=== PATIENT | female | born 1955 | race Caucasian/White ===

== ENCOUNTER 2023-03-23 23:01 | Observation (INO) ==
[2023-03-24 00:03] LABS: Basophils # (auto) 0.02 K/uL (0-0.2); Basophils % (auto) 0.3 %; Eosinophils # (auto) 0.06 K/uL (0-0.50); Eosinophils % (auto) 0.8 %; Hematocrit (blood only) 34.3 % (37.0-47.0); Immature Granulocytes # (auto) 0.01 K/uL (0.01-0.20); Immature Granulocytes % (auto) 0.1 %; Lymphocytes # (auto) 1.55 K/uL (1.2-3.4); Lymphocytes % (auto) 21.3 %; Mean Corpuscular Hemoglobin 31.5 pg (25.0-34.0); Mean Platelet Volume 9.9 fL (9.4-12.4); Monocytes # (auto) 0.48 K/uL (0.11-0.59); Monocytes % (auto) 6.6 %; Neutrophils # (auto) 5.16 K/uL (1.40-6.50); Neutrophils % (auto) 70.9 %; Platelet Count 228 K/uL (130-400); RDW Coefficient of Variation 12.1 % (11.5-14.5); RDW Standard Deviation 39.6 fL (36.4-46.3); Red Blood Count 3.81 M/uL (4.20-5.40); White Blood Count 7.28 K/ul (4.8-10.8)
[2023-03-24 00:04] LABS: Albumin Globulin Ratio 1.6 (0.9-2); Albumin Level 4.2 gm/dl (3.4-5.0); BUN Creatinine Ratio 15.2 (10-20); Bilirubin,Total 0.8 mg/dl (0.2-1.0); Calcium 8.6 mg/dl (8.6-10.3); Creatinine Clr Calc Pharmacy 71.4 ml/min; Est GFR (African American) 105.9 ml/min; Est GFR (Non-African American) 91.4 ml/min; Globulin 2.6 gm/dl (2.5-4.0); Magnesium 1.8 mg/dl (1.7-2.4); Potassium 3.6 mmol/L (3.5-5.1); Total Protein 6.8 gm/dl (6.0-8.3)
[2023-03-24 00:19] LABS: Thyroid Stimulating Hormone 5.978 uIu/ml (0.300-4.500)
[2023-03-24] MEDS ORDERED: SODIUM CHLORIDE 0.9% 1000ML 1,000 ML IV ONE (01:06)
--- NOTE | 2023-03-24 01:19 | Emergency Department Note ---
Impression & Plan Acute hyponatremia, Blurred vision, Diarrhea Admit to the [facility] ED Provider Note NAME: NANCY GUTIÉRREZ AGE: 68 SEX: F ARRIVES VIA: Walk-In INFORMANT: Patient ED PROVIDER(S): Alejandra Beasley DO CHIEF COMPLAINT: Blurry vision PLAN: Disposition: Admit to the [facility] Condition: Fair MEDICAL DECISION MAKING: This is a 68-year-old female patient who presents to the emergency department for evaluation while prepping for her colonoscopy. She was care home through the prep for colonoscopy when she started to notice some blurry vision. She became quite concerned about this and felt somewhat anxious and noted that she was hypertensive. She contacted the nurse on-call for GI and they suggested she come to the ER for evaluation. Patient blood pressure was elevated here in the emergency department. Laboratory studies reveal a stable H&H, normal glucose but the patient's sodium was significantly low at 125. Patient with a normal- appearing chest x-ray and a normal EKG. Patient began to receive IV normal saline solution but then began to have significant repetitive loose bowel movements from the Sutab prep she had performed at home. I was concerned about the additional sodium loss that may occur from the expected diarrhea. She could become more hyponatremic and possibly seize. I discussed the case with the [facility]ist and they will evaluate for further management. Triage Nursing notes reviewed and agree with them. Additional history obtained from her who is at the bedside Vital Signs: reviewed and remarkable for unremarkable Differential diagnosis: Hypertension Electrolyte abnormality Hyperglycemia Anxiety ER treatment provided: Cardiac monitoring Twelve-lead EKG IV normal saline bolus Diagnostics interpreted by me: ECG: Normal sinus rhythm at a rate of [address] segment elevation or signs of ischemia. There is no ectopy. Cardiac Monitoring: Normal sinus rhythm at a rate of 74 Laboratory studies: See below Imaging studies: As per my independent interpretation Portable chest x-ray: No acute pulmonary infiltrates. HPI: 68/F arrives for evaluation of blurry vision. The patient was performing a Sutab prep at home for a colonoscopy when she developed blurry vision. She contacted the GI nurse on-call and they recommended she come to the emergency department for evaluation. Patient took her blood pressure at home and noted to be elevated. This made her more anxious and concerned. PAST MEDICAL HISTORY:Depression PAST SURGICAL HISTORY:See Below FAMILY HISTORY:See Below SOCIAL HISTORY:She lives with her . HOME MEDICATIONS:See list ALLERGIES:None VITALS:See Below PHYSICAL EXAMINATION: HEENT: Head - normocephalic and atraumatic Pupils are equal, round, and reactive to light. Extraocular eye muscles are intact, and sclera are anicteric. Nose - moist nasal mucosa without discharge. Mouth - moist buccal mucosa. Oropharynx is nonerythematous and there is no tonsillar exudate or edema noted. Neck: Supple; no cervical lymphadenopathy noted Heart: Regular rate and rhythm. There is a normal S1 and S2 with no murmurs, clicks, or gallops appreciated. Lungs: Clear to auscultation bilaterally with no wheezes, rales, or rhonchi. Abdomen: Soft, completely nontender, nondistended, with good bowel sounds. There are no palpable pulsatile masses or hepatosplenomegaly. There is no guarding, rigidity, or rebound noted. Extremities: No evidence of cyanosis, clubbing, or edema. There are easily palpable peripheral pulses. Skin: warm and dry with good turgor and no rashes. ED COURSE: Times/Reassessments: 2310: Patient was evaluated in room C4. A complete history and physical was performed. A twelve-lead EKG was obtained as described above. An order was placed for continuous cardiac monitoring. The patient was in a normal sinus rhythm at a rate of 74. Patient had a portable chest x-ray perf ormed as described above. She was bolused with a liter of normal saline solution wide open. I discussed the case with the [facility] Hospitalist and they will evaluate for further management. Alejandra Beasley DO Past Med/Surg History Medical History (Updated 03/24/23 @ 04:36 by Alejandra Beasley DO) Depression Family History (Updated 03/24/23 @ 03:11 by Lona Thompson DO) Other Diabetes Social History (Updated 03/24/23 @ 03:12 by Lona Thompson DO) Smoking Status: Former smoker Hx Alcohol Use: Yes Alcohol type: wine Feels Safe at Home: Yes Home Meds Home Medications Medication Instructions Recorded Confirmed citalopram 10 mg tablet 15 mg PO DAILY 03/23/23 03/23/23 Results & Data (ED) Vital Signs Vital Signs - 24 hr 03/23/23 23:03 03/23/23 23:43 03/24/23 01:10 Temperature 36.1 C L Temperature Source Temporal Artery Scan Pulse Rate 82 70 Pulse Rate [Right Finger] 74 Pulse Rate from SpO2 Sensor Respiratory Rate 18 18 18 Respiratory Effort / Characteristics Non-Labored Spontaneous Respiratory Depth Normal Blood Pressure 164/100 H Blood Pressure [Right Arm] 134/84 Blood Pressure Mean 121 Blood Pressure Mean [Right Arm] 100 Blood Pressure Position Sitting Pulse Oximetry 97 98 98 Oxygen Delivery Method Room Air Sepsis Recent Fever Within 48 Hours No Sepsis New/Unexplained Change in Mental Status N/A Sepsis Action Taken by Nursing No Action Required 03/24/23 02:25 03/24/23 02:26 03/24/23 02:30 Temperature Temperature Source Pulse Rate 64 Pulse Rate [Right Finger] Pulse Rate from SpO2 Sensor 65 Respiratory Rate 18 Respiratory Effort / Characteristics Respiratory Depth Blood Pressure 138/85 139/78 Blood Pressure [Right Arm] Blood Pressure Mean 102 98 Blood Pressure Mean [Right Arm] Blood Pressure Position Pulse Oximetry 99 Oxygen Delivery Method Sepsis Recent Fever Within 48 Hours Sepsis New/Unexplained Change in Mental Status Sepsis Action Taken by Nursing 03/24/23 02:30 Temperature Temperature Source Pulse Rate 58 L Pulse Rate [Right Finger] Pulse Rate from SpO2 Sensor Respiratory Rate 20 Respiratory Effort / Characteristics Respiratory Depth Blood Pressure Blood Pressure [Right Arm] Blood Pressure Mean Blood Pressure Mean [Right Arm] Blood Pressure Position Pulse Oximetry Oxygen Delivery Method Sepsis Recent Fever Within 48 Hours Sepsis New/Unexplained Change in Mental Status Sepsis Action Taken by Nursing Laboratory Data 03/23/23 23:37 03/23/23 23:37 Lab Results 03/23/23 03/23/23 03/23/23 Range/Units 23:37 23:37 23:37 WBC 7.28 (4.8-10.8) K/ul RBC 3.81 L (4.20-5.40) M/uL Hgb 12.0 (12.0-16.0) g/dl Hct 34.3 L (37.0-47.0) % MCV 90.0 (80.0-100.0) fL MCH 31.5 (25.0-34.0) pg MCHC 35.0 (32.0-36.0) g/dL RDW Std Deviation 39.6 (36.4-46.3) fL RDW Coeff of Lorene 12.1 (11.5-14.5) % Plt Count 228 (130-400) K/uL MPV 9.9 (9.4-12.4) fL Immature Gran % (Auto) 0.1 % Neut % (Auto) 70.9 % Lymph % (Auto) 21.3 % [place] % (Auto) 6.6 % Eos % (Auto) 0.8 % Baso % (Auto) 0.3 % Neut # (Auto) 5.16 (1.40-6.50) K/uL Lymph # (Auto) 1.55 (1.2-3.4) K/uL Candler # (Auto) 0.48 (0.11-0.59) K/uL Eos # (Auto) 0.06 (0-0.50) K/uL Baso # (Auto) 0.02 (0-0.2) K/uL Immature Gran # (Auto) 0.01 (0.01-0.20) K/uL Sodium 125 L (136-145) mmol/L Potassium 3.6 (3.5-5.1) mmol/L Chloride 92 L (98-107) mmol/L Carbon Dioxide 24 (21-32) mmol/L Anion Gap 9 (3-11) BUN 10 (6-23) mg/dl Creatinine 0.66 (0.6-1.2) mg/dl Est Cr Clr Drug Dosing 71.4 ml/min Est GFR ( Amer) 105.9 ml/min Est GFR (Non-Af Amer) 91.4 ml/min BUN/Creatinine Ratio 15.2 (10-20) Glucose 132 H (70-99(Fasting)) mg/dl Calcium 8.6 (8.6-10.3) mg/dl Magnesium 1.8 (1.7-2.4) mg/dl Total Bilirubin 0.8 (0.2-1.0) mg/dl AST 19 (13-39) U/L ALT 14 (7-52) U/L Alkaline Phosphatase 63 (34-104) U/L Total Protein 6.8 (6.0-8.3) gm/dl Albumin 4.2 (3.4-5.0) gm/dl Globulin 2.6 (2.5-4.0) gm/dl Albumin/Globulin Ratio 1.6 (0.9-2) TSH 5.978 H (0.300-4.500) uIu/ml Free T4 0.63 (0.61-1.60) ng/dl SARS-CoV-2, RNA, NAAT (NEGATIVE) 03/24/23 Range/Units 02:26 WBC (4.8-10.8) K/ul RBC (4.20-5.40) M/uL Hgb (12.0-16.0) g/dl Hct (37.0-47.0) % MCV (80.0-100.0) fL MCH (25.0-34.0) pg MCHC (32.0-36.0) g/dL RDW Std Deviation (36.4-46.3) fL RDW Coeff of Lorene (11.5-14.5) % Plt Count (130-400) K/uL MPV (9.4-12.4) fL Immature Gran % (Auto) % Neut % (Auto) % Lymph % (Auto) % Candler % (Auto) % Eos % (Auto) % Baso % (Auto) % Neut # (Auto) (1.40-6.50) K/uL Lymph # (Auto) (1.2-3.4) K/uL Candler # (Auto) (0.11-0.59) K/uL Eos # (Auto) (0-0.50) K/uL Baso # (Auto) (0-0.2) K/uL Immature Gran # (Auto) (0.01-0.20) K/uL Sodium (136-145) mmol/L Potassium (3.5-5.1) mmol/L Chloride (98-107) mmol/L Carbon Dioxide (21-32) mmol/L Anion Gap (3-11) BUN (6-23) mg/dl Creatinine (0.6-1.2) mg/dl Est Cr Clr Drug Dosing ml/min Est GFR ( Amer) ml/min Est GFR (Non-Af Amer) ml/min BUN/Creatinine Ratio (10-20) Glucose (70-99(Fasting)) mg/dl Calcium (8.6-10.3) mg/dl Magnesium (1.7-2.4) mg/dl Total Bilirubin (0.2-1.0) mg/dl AST (13-39) U/L ALT (7-52) U/L Alkaline Phosphatase (34-104) U/L Total Protein (6.0-8.3) gm/dl Albumin (3.4-5.0) gm/dl Globulin (2.5-4.0) gm/dl Albumin/Globulin Ratio (0.9-2) TSH (0.300-4.500) uIu/ml Free T4 (0.61-1.60) ng/dl SARS-CoV-2, RNA, NAAT NEGATIVE (NEGATIVE) Administered Medications Discontinued Medications Sodium Chloride (Nss 1000ml) 1,000 mls @ 999 mls/hr IV .Q1H1M ONE Stop: 03/24/23 02:06 Last Infusion: 03/24/23 03:28 Dose: 0 mls/hr Documented By: MARY KATE Admin: 03/24/23 01:48 Dose: 999 mls/hr Documented By: MARY KATE Discharge Plan Visit Data Chief Complaint: Visual Disturbance Stated Complaint: PREPPING FOR COLONSCOPY,VISION BLURRY ED Provider: Alejandra Beasley Discharge Problem: Acute hyponatremia, Blurred vision, Diarrhea Diarrhea Qualifiers: Diarrhea type: unspecified type Qualified Code(s): R19.7 - Diarrhea, unspecified
[2023-03-24 02:06] LABS: T4 Free Thyroxine 0.63 ng/dl (0.61-1.60)
--- NOTE | 2023-03-24 03:20 | History & Physical Report ---
Date of Service March 24, 2023 Assessment & Plan (1) Acute hyponatremia: Plan: 68yo female presenting with acute visual disturbance that occurred while she was preparing for an upcoming colonoscopy. Likely secondary to acute water intoxication. Patient reportedly drinking quite a lot of free water during her preparation (possibly over a gallon). Found to have hyponatremia with Gq=421. Prior Na values have been normal, most recently 12/24/22 Kw=666. Patient reports her visual disturbance has since resolved and she feels back to baseline. She denies CORONEL, seizure, imbalance or confusion. She was given 1L NSS in the ER -Admit to medical -STAT BMP -Check Urine and Serum Osmolality -Check urine Na -Free water restriction 1000mL/day -Trend BMP (2) Depression: Plan: Chronic. Well controlled with Citalopram. While this medication can cause hyponatremia secondary to SIADH she has been on a longstanding, stable dose. Patient's hyponatremia most likely secondary to increased intake of free water in a short period of time. -Continue Citalopram F/E/N - Heplock. Monitor NA - STAT BMP now and q 12 hours until Na normalizes, Regular diet as tolerated Ppx - Low risk for VTE Code -Full Dispo - Admit to medical History of Present Illness Chief Complaint: visual disturbance Primary Care Provider: Cecilia Cruz Ju Dickerson is a pleasant 68yo female presenting with acute visual disturbance. Patient was preparing for her colonoscopy this afternoon with SuTab. She took her first tablet around 16:00 followed by 16 oz of water. She continued to take a SuTab every 15 minutes followed by 16 oz of water. She finished her 10th tablet with water (assume appx 160 oz of water consumed?) when she developed acute visual disturbance. She reports her vision became blurry "like a fog came over her eyes". She called the ER then GI and was instructed to come to the ER. She did have several watery BMs at home. She denies CORONEL, dizziness, confusion or seizure. Vision has since returned to normal. No additional complaints at this time. No prior history of hyponatremia. Patient is overall healthy and active. Eats a balanced diet. No new medications or changes in dosage. In the ER she is afebrile, HD stable, NAD ER Course: NSS x 1L Home Medications Medication Instructions Recorded Confirmed Type citalopram 10 mg tablet 15 mg PO DAILY 03/23/23 03/23/23 History Past Med/Surg History Medical History (Updated 03/24/23 @ 03:14 by Lona Thompson DO) Depression Family History (Updated 03/24/23 @ 03:11 by Lona Thompson DO) Other Diabetes Social History (Updated 03/24/23 @ 03:12 by Lona Thompson DO) Smoking Status: Former smoker Hx Alcohol Use: Yes Alcohol type: wine Feels Safe at Home: Yes Review of Systems Review of Systems: All systems reviewed & are unremarkable except as noted in HPI & below Physical Exam Physical Exam: General: patient resting comfortably, NAD, non-toxic in appearance, AA&O x 4 Skin: warm, dry, intact, no rashes or lesions HEENT: NC/AT, PERRL, EOMI, anicteric sclera, conjunctiva without injection, external ear normal to inspection and nontender, nares patent, moist mucus membranes, dentition intact, no oropharyngeal lesions, neck supple, trachea midline, no LAD, no thyromegaly, no JVD Heart: +S1/S2, regular, no m/r/g Lungs: equal air entry bilaterally, no rales/rhonchi/wheezes Abd: +BS, soft, NT/ND, no masses/organomegaly/ascites Ext: warm, 2+ pulses in UE/LE bilaterally, no clubbing/cyanosis or edema Neuro: nonfocal, patient AA&O x 4, speech intact, no facial droop, moving all extremities on command with equal strength 5/5 Results & Data Results & Data Vital Signs (Past 12 Hours) Vital Signs Temp Pulse Pulse Resp BP BP Pulse Ox 03/24/23 01:10 74 18 134/84 98 03/23/23 23:43 70 18 98 03/23/23 23:03 36.1 C L 82 18 164/100 H 97 O2 Del Method 03/24/23 01:10 03/23/23 23:43 03/23/23 23:03 Room Air Laboratory Results Laboratory Results WBC 7.28 K/ul (4.8-10.8) 03/23/23 23:37 RBC 3.81 M/uL (4.20-5.40) L 03/23/23 23:37 Hgb 12.0 g/dl (12.0-16.0) 03/23/23 23: Hct 34.3 % (37.0-47.0) L 03/23/23 23: MCV 90.0 fL (80.0-100.0) 03/23/23 23: MCH 31.5 pg (25.0-34.0) 03/23/23 23: MCHC 35.0 g/dL (32.0-36.0) 03/23/23 23: RDW Std Deviation 39.6 fL (36.4-46.3) 03/23/23 23: RDW Coeff of Lorene 12.1 % (11.5-14.5) 03/23/23: Plt Count 228 K/uL (130-400) 03/23/23 23: MPV 9.9 fL (9.4-12.4) 03/23/23 23: Immature Gran % (Auto) 0.1 % 03/23/23 23: Neut % (Auto) 70.9 % 03/23/23 23: Lymph % (Auto) 21.3 % 03/23/23 23:37 [place] % (Auto) 6.6 % 03/23/23 23: Eos % (Auto) 0.8 % 03/23/23 23: Baso % (Auto) 0.3 % 03/23/23 23:37 Neut # (Auto) 5.16 K/uL (1.40-6.50) 03/23/23 23: Lymph # (Auto) 1.55 K/uL (1.2-3.4) 03/23/23 23:37 [place] # (Auto) 0.48 K/uL (0.11-0.59) 03/23/23 23:37 Eos # (Auto) 0.06 K/uL (0-0.50) 03/23/23 23: Baso # (Auto) 0.02 K/uL (0-0.2) 03/23/23 23:37 Immature Gran # (Auto) 0.01 K/uL (0.01-0.20) 03/23/23 23: Sodium 125 mmol/L (136-145) L 03/23/23 23: Potassium 3.6 mmol/L (3.5-5.1) 03/23/23 23:37 Chloride 92 mmol/L (98-107) L 03/23/23 23:37 Carbon Dioxide 24 mmol/L (21-32) 03/23/23 23:37 Anion Gap 9 (3-11) 03/23/23 23:37 BUN 10 mg/dl (6-23) 03/23/23 23:37 Creatinine 0.66 mg/dl (0.6-1.2) 03/23/23 23:37 Est Cr Clr Drug Dosing 71.4 ml/min 03/23/23 23:37 Est GFR ( Amer) 105.9 ml/min 03/23/23 23:37 Est GFR (Non-Af Amer) 91.4 ml/min 03/23/23 23:37 BUN/Creatinine Ratio 15.2 (10-20) 03/23/23 23:37 Glucose 132 mg/dl (70-99(Fasting)) H 03/23/23 23:37 Calcium 8.6 mg/dl (8.6-10.3) 03/23/23 23:37 Magnesium 1.8 mg/dl (1.7-2.4) 03/23/23 23:37 Total Bilirubin 0.8 mg/dl (0.2-1.0) 03/23/23 23:37 AST 19 U/L (13-39) 03/23/23 23:37 ALT 14 U/L (7-52) 03/23/23 23:37 Alkaline Phosphatase 63 U/L (34-104) 03/23/23 23:37 Total Protein 6.8 gm/dl (6.0-8.3) 03/23/23 23:37 Albumin 4.2 gm/dl (3.4-5.0) 03/23/23 23:37 Globulin 2.6 gm/dl (2.5-4.0) 03/23/23 23:37 Albumin/Globulin Ratio 1.6 (0.9-2) 03/23/23 23:37 TSH 5.978 uIu/ml (0.300-4.500) H 03/23/23 23:37 Free T4 0.63 ng/dl (0.61-1.60) 03/23/23 23:37 SARS-CoV-2, RNA, NAAT NEGATIVE (NEGATIVE) 03/24/23 02:26 Diagnostic Findings CXR - per my interpretation - normal study with no edema, consolidation or pneumothorax ECG Additional Comments: Per my interpretation - EKG with NSR at 63, normal axis, DV=272, QRS=94, WMr=496, no acute ischemic changes PG Care Time/CCT Total # of Minutes Spent Total Time Spent with Patient: Total time spent is greater than 50% in coordination of care (as documented) at patient's floor/unit and/or counseling patient: Coding Level of Care Code 45826 INT INP/OBS CARE 2/55MIN Diagnoses Acute hyponatremia E87.1 Depression F32.A
[2023-03-24 04:17] LABS: BUN Creatinine Ratio 15.3 (10-20); Calcium 8.9 mg/dl (8.6-10.3); Creatinine Clr Calc Pharmacy 79.9 ml/min; Est GFR (African American) 109.9 ml/min; Est GFR (Non-African American) 94.8 ml/min; Potassium 3.6 mmol/L (3.5-5.1)
--- NOTE | 2023-03-24 06:43 | XRay Report ---
XR chest 1V portable HISTORY: 68 years-old Female weakness acute weakness COMPARISON: 12/24/2012 TECHNIQUE: AP view of the chest FINDINGS: Cardiomediastinal and hilar silhouettes are within normal limits. There is no pneumothorax, pleural e ffusion, airspace consolidation or pulmonary edema. Mild linear subsegmental bibasilar atelectasis ve rsus scarring. Bones appear grossly intact. IMPRESSION: No acute process. ACT 112: Negative or not required by law. The above report was generated using voice recognition software. It may contain grammatical, syntax o r spelling errors. Electronically signed by: Audi Bailey M.D. 03/24/2023 6:42 AM
[2023-03-24] MEDS ORDERED: CITALOPRAM 20 MG TAB PO SCH (09:00)
[2023-03-24 09:27] LABS: BUN Creatinine Ratio 11.9 (10-20); Calcium 9.3 mg/dl (8.6-10.3); Creatinine Clr Calc Pharmacy 79.9 ml/min; Est GFR (African American) 109.9 ml/min; Est GFR (Non-African American) 94.8 ml/min; Potassium 3.9 mmol/L (3.5-5.1)
[2023-03-24] MEDS ORDERED: DEXTROSE 5% 500 ML IV SCH (10:00)
[2023-03-24] MEDS ORDERED: Patient's ALLERGY Info needs ENTERED SCH (10:00)
--- NOTE | 2023-03-24 10:38 | Electrocardiogram Report ---
Test Reason : Blood Pressure : / mmHG Vent. Rate : 063 BPM Atrial Rate : 063 BPM P-R Int : 116 ms QRS Dur : 094 ms QT Int : 450 ms P-R-T Axes : 061 043 052 degrees QTc Int : 460 ms Normal sinus rhythm Normal ECG When compared with ECG of 24-DEC-2022 12:30, No significant change was found Confirmed by Vipin Stewart ([id number]) on 03/24/2023 10:38:24 AM Referred By: REFERRED SELF Confirmed By:Matt Stewart
[2023-03-24 11:30] LABS: BUN Creatinine Ratio 12.9 (10-20); Calcium 9.3 mg/dl (8.6-10.3); Est GFR (African American) 108.1 ml/min; Est GFR (Non-African American) 93.3 ml/min; Potassium 4.1 mmol/L (3.5-5.1)
--- NOTE | 2023-03-24 13:25 | Med Student Discharge Summary ---
Date of Service March 24, 2023 Admission HPI Per Admitting Provider Ju Dickerson is a pleasant 68yo female presenting with acute visual disturbance. Patient was preparing for her colonoscopy this afternoon with SuTab. She took her first tablet around 16:00 followed by 16 oz of water. She continued to take a SuTab every 15 minutes followed by 16 oz of water. She finished her 10th tablet with water (assume appx 160 oz of water consumed?) when she developed acute visual disturbance. She reports her vision became blurry "like a fog came over her eyes". She called the ER then GI and was instructed to come to the ER. She did have several watery BMs at home. She denies CORONEL, dizziness, confusion or seizure. Vision has since returned to normal. No additional complaints at this time. No prior history of hyponatremia. Patient is overall healthy and active. Eats a balanced diet. No new medications or changes in dosage. In the ER she is afebrile, HD stable, NAD ER Course: NSS x 1L Admission Exam (Per Admitting) Constitutional General: patient resting comfortably, NAD, non-toxic in appearance, AA&O x 4 Skin: warm, dry, intact, no rashes or lesions HEENT: NC/AT, PERRL, EOMI, anicteric sclera, conjunctiva without injection, external ear normal to inspection and nontender, nares patent, moist mucus membranes, dentition intact, no oropharyngeal lesions, neck supple, trachea midline, no LAD, no thyromegaly, no JVD Heart: +S1/S2, regular, no m/r/g Lungs: equal air entry bilaterally, no rales/rhonchi/wheezes Abd: +BS, soft, NT/ND, no masses/organomegaly/ascites Ext: warm, 2+ pulses in UE/LE bilaterally, no clubbing/cyanosis or edema Neuro: nonfocal, patient AA&O x 4, speech intact, no facial droop, moving all extremities on command with equal strength 5/5 Discharge Exam General: appears comfortable, no acute distress HEENT: NC/AT, EOMI, neck supple, no lymphadenopathy, moist mucous membranes Heart: RRR, no murmurs Lungs: CTA bilaterally, no increased work of breathing Abd: soft, nontender, nondistended, normal BS Ext: peripheral pulses equally palpable, no LE edema Skin: warm and dry, no rashes or lesions Neuro: A&O, no focal neurologic deficits, CN's grossly intact Discharge Data Consultations 03/24/23 02:16 ED Decision to Admit Stat Hospital Course (1) Acute hyponatremia: Ju, a 68yo female, presented to the ED with acute visual disturbance that occurred while she was preparing for an upcoming colonoscopy. The pt estimates drinking over 1 gallon in a short period of time to complete the colonoscopy prep. She was found to have hyponatremia with Uv=379, likely secondary to acute water intoxication. Prior Na values have been normal, most recently 12/24/22 Dk=986. The pt received 1L NSS in the ER and was placed on 1000mL fluid restriction. The morning after admission, pt reports resolution of her visual disturbance and she feels back to baseline. Denies CORONEL, imbalance, confusion, seizures. Na autocorrected to 140. Repeat BMP prior to discharge showed Na 139. (2) Depression: Chronic. Well controlled with Citalopram. While this medication can cause hyponatremia secondary to SIADH she has been on a longstanding, stable dose. Patient's hyponatremia most likely secondary to increased intake of free water in a short period of time. Her home Citalopram was continued during stay. Discharge Plan Discharge Items Patient Disposition: Home - Self-Care Reason For Visit: ACUTE HYPONATREMIA Discharge Diagnosis: Acute Hyponatremia Activity: Resume your previous activity Non-emergency contact: Primary Care Provider Call non-emergency contact if: your symptoms worsen Follow-up/Referrals: Cecilia Cruz [Primary Care Provider] - Diet: Regular Addtl Attending Provider Instructions: Dear Ju, You were brought to the hospital because of acutely blurry vision following an episode of drinking lots of water. You were evaluated in the hospital and found to have an acute episode of hyponatremia, already lower than normal concentration of sodium in your blood. We gave you some IV saline and you are hyponatremia resolved. We held you precaution early to retest your serum sodium, which returned normal. Now that this is occurred, we feel you are ready to be discharged home. 1. You may continue taking your home medications as previously directed. We made no changes to your list of medications. 2. You should take precautions moving forward not to drink too much free water, which was what brought you into the hospital. It has been a pleasure taking care of you here at [facility]. If you have any questions or concerns about your stay, you may reach out to us at [phone]. Pending Studies at Discharge: No Stand-Alone Forms: My [facility], Smoking Cessation Medications and DC Order Prescriptions: Continued citalopram 10 mg tablet 15 mg PO DAILY Discharge Orders: Discharge Order (Routine); Ordered 03/24/23 Ordered By: Shonna Gipson Admission Data Admit Date/Time: 03/24/23 03:03 Attending Provider: Aden Navarro Admit Provider: Lona Thompson Primary Care Provider: Cecilia Cruz Other Providers: Lona Thompson Other Interventions: Discharge Summary Assessment (RN) Last Done: 03/24/23 16:04 Supervising Attestation Attending attestation Pt seen and examined in concert with Dr. Gipson, St. Dr. Chacko. In agreement with the documented findings as noted in the resident documentation with any exceptions or additions as noted here. Resolution and no further recurrence of blurry vision or similar. No other acute complaints and feeling well. Reports taking her colonoscopy prep more aggressively than directed, drinking excess water for same "to hurry along the process" On examination, S1/S2 nl RRR no MCG. CTAB. Abd NT/ND BS+ve Hyponatremia, moderate - resolved - self correction likely following 1L NS as noted and autodiuresis without recurrence of symptoms and with stable labs on repeat. Counseling provided re: excess free water intake, medication adherence and adverse reactions. Else see resident documentation as noted. Total attending physician time spent with this patient's care on the day of discharge: 35 minutes. Resident Activity Tracking Resident Involvement: Resident Care Provided Care Provided: Adult Hospital Medicine
[2023-03-24 13:39] LABS: BUN Creatinine Ratio 13.6 (10-20); Calcium 8.9 mg/dl (8.6-10.3); Creatinine Clr Calc Pharmacy 71.4 ml/min; Est GFR (African American) 105.9 ml/min; Est GFR (Non-African American) 91.4 ml/min; Potassium 4.4 mmol/L (3.5-5.1)
[2023-03-24 15:45] LABS: BUN Creatinine Ratio 15.2 (10-20); Calcium 9.1 mg/dl (8.6-10.3); Creatinine Clr Calc Pharmacy 59.7 ml/min; Est GFR (African American) 89.8 ml/min; Est GFR (Non-African American) 77.5 ml/min; Potassium 4.4 mmol/L (3.5-5.1)
== END 2023-03-24 16:36 | disposition home or self-care (01) ==
LOC: ED 23:01 → 3N 03-24 03:03 → SUATTDRO 03-24 03:03 → INTOOBSV 03-24 03:03 → 3N 03-24 04:38